=== PATIENT | male | born 1960 | race Hispanic/Latino ===

== ENCOUNTER 2025-07-16 16:22 | Inpatient (IN) | payer MEDICARE, SELFPAY ==
[2025-07-16 17:10] LABS: #Basophils 0.08 10x3/uL (0.0-0.2); #Eosinophils 0.27 10x3/uL (0.0-0.7); #Monocytes 0.75 10x3/uL (0.11-0.59); #Neutrophils 6.21 10x3/uL (1.40-6.50); %Basophils 1.0 % (0.0-1.0); %Eosinophils 3.3 % (0.0-10.0); %Lymphocytes 11.0 % (21.0-51.0); %Monocytes 9.1 % (0.0-10.0); %Neutrophils 75.2 % (42.0-75.0); Hematocrit 29.3 % (42.0-52.0); Hemoglobin 9.4 g/dL (14.0-18.0); Mean Corpuscular Hemoglobin 31.1 pg (27.0-31.0); Mean Corpuscular Volume 97.0 fL (78.0-98.0); Platelet Count 186 10x3/uL (130-400); Red Blood Cell (RBC) Count 3.02 mill/uL (4.70-6.10); White Blood Cell (WBC) Count 8.25 10x3/uL (4.8-10.8)
[2025-07-16 17:24] LABS: INR-International Normal Ratio 1.3; Prothrombin Time 16.1 sec (12.0-14.7)
[2025-07-16 17:25] LABS: PTT 36.6 sec (22.9-36.1)
[2025-07-16 17:44] LABS: ALT (SGPT) 19 U/L (Less than 45); AST (SGOT) 26 U/L (11-34); Albumin 3.2 g/dL (3.1-4.5); Alkaline Phosphatase 176 U/L (40-110); Anion Gap 22 mmol/L (10-20); BUN (Urea Nitrogen) 68 mg/dL (8.4-25.7); Bilirubin, Total 0.6 mg/dL (0.3-1.2); CK (CPK) 64 U/L (30-200); Calc. Creatinine Clearance 0 mL/min (70-130); Calcium 8.3 mg/dL (7.8-10.44); Carbon Dioxide 21 mmol/L (23-31); Chloride 103 mmol/L (98-107); Globulin 3.6 g/dL (2.4-3.5); Glucose 149 mg/dL (80-115); Lipase 34 U/L (8-78); Magnesium 2.3 mg/dL (1.6-2.6); Potassium 6.6 mmol/L (3.5-5.1); Sodium 139 mmol/L (136-145)
[2025-07-16] MEDS ORDERED: Furosemide 40 MG (4 mL) VIAL ONE (17:51)
[2025-07-16] MEDS ORDERED: CALCIUM GLUC 1 GM/NS 50 ML IV Bag ONE (17:52)
[2025-07-16] MEDS ORDERED: Albuterol 2.5 MG (0.5 mL) NEB ONE (18:40)
[2025-07-16] MEDS ORDERED: Dextrose 50% Abboject 50 ML SYRINGE ONE ×2 (19:32→21:07)
[2025-07-16] MEDS ORDERED: Glucagon 1 MG/ML KIT IM PRN (21:28)
[2025-07-16] MEDS ORDERED: Dextrose 50% Abboject 50 ML SYRINGE SLOW IVP PRN (21:28)
[2025-07-16 23:53] LABS: HBSAB Concentration 95.62 mIU/mL; Hep B Core Total Ab NONREACTIVE (NonReactive); Hep B Core Total Index 0.09 S/CO (0-0.79); Hep B Surf Ag NONREACTIVE S/CO (NonReactive); Hep C IgG Ab NONREACTIVE S/CO (NonReactive); Hep C Index 0.10 S/CO (0-0.79)
[2025-07-17] MEDS: Acetaminophen 325 MG TAB PO SCH (01:34)
[2025-07-17] MEDS: EPOETIN ALFA-EPBX (ESRD) 10,000 UNITS/ML VIAL IVP SCH (01:37)
[2025-07-17 01:44] VITALS: BMI 23.7
[2025-07-17 05:02] LABS: #Basophils 0.05 10x3/uL (0.0-0.2); #Eosinophils 0.20 10x3/uL (0.0-0.7); #Monocytes 0.80 10x3/uL (0.11-0.59); #Neutrophils 5.63 10x3/uL (1.40-6.50); %Basophils 0.7 % (0.0-1.0); %Eosinophils 2.7 % (0.0-10.0); %Lymphocytes 10.5 % (21.0-51.0); %Monocytes 10.7 % (0.0-10.0); %Neutrophils 75.1 % (42.0-75.0); Hematocrit 28.8 % (42.0-52.0); Hemoglobin 9.1 g/dL (14.0-18.0); Mean Corpuscular Hemoglobin 30.4 pg (27.0-31.0); Mean Corpuscular Volume 96.3 fL (78.0-98.0); Platelet Count 164 10x3/uL (130-400); Red Blood Cell (RBC) Count 2.99 mill/uL (4.70-6.10); White Blood Cell (WBC) Count 7.49 10x3/uL (4.8-10.8)
[2025-07-17 05:33] LABS: ALT (SGPT) 19 U/L (Less than 45); AST (SGOT) 26 U/L (11-34); Albumin 3.4 g/dL (3.1-4.5); Alkaline Phosphatase 163 U/L (40-110); Anion Gap 17 mmol/L (10-20); BUN (Urea Nitrogen) 37 mg/dL (8.4-25.7); Bilirubin, Total 0.6 mg/dL (0.3-1.2); Calc. Creatinine Clearance 19 mL/min (70-130); Calcium 8.6 mg/dL (7.8-10.44); Carbon Dioxide 28 mmol/L (23-31); Chloride 99 mmol/L (98-107); Globulin 3.6 g/dL (2.4-3.5); Glucose 123 mg/dL (80-115); Potassium 4.0 mmol/L (3.5-5.1); Sodium 140 mmol/L (136-145)
[2025-07-17] MEDS: hydrALAZINE 20 MG/ML VIAL SLOW IVP SCH (06:36)
[2025-07-17] MEDS: Ondansetron PF 4 MG/2 ML Vial IVP PRN (07:56)
[2025-07-17] MEDS: Heparin 5,000 UNITS/ML VIAL SC SCH (07:56)
[2025-07-17] MEDS: FLU (Fluarix Triv) 25-26 (6MOS UP)/PF 45 MCG/0.5 ML Syringe IM ONE (08:10)
[2025-07-17] MEDS: PNEUMOC 20-VAL CONJ-DIP CRM/PF 0.5 ML SYRINGE IM ONE (08:10)
[2025-07-17] MEDS ORDERED: NIFEdipine XL 60 MG ER.TAB PO SCH (08:30)
[2025-07-17] MEDS: NIFEdipine XL 90 MG ER.TAB PO SCH (10:08)
[2025-07-17 13:44] VITALS: BMI 23.6
[2025-07-17] MEDS: Melatonin 3 MG TAB PO SCH (20:55)
[2025-07-18 05:12] LABS: #Basophils 0.09 10x3/uL (0.0-0.2); #Eosinophils 0.29 10x3/uL (0.0-0.7); #Monocytes 0.90 10x3/uL (0.11-0.59); #Neutrophils 4.85 10x3/uL (1.40-6.50); %Basophils 1.3 % (0.0-1.0); %Eosinophils 4.0 % (0.0-10.0); %Lymphocytes 14.2 % (21.0-51.0); %Monocytes 12.5 % (0.0-10.0); %Neutrophils 67.4 % (42.0-75.0); Hematocrit 31.3 % (42.0-52.0); Hemoglobin 9.8 g/dL (14.0-18.0); Mean Corpuscular Hemoglobin 31.0 pg (27.0-31.0); Mean Corpuscular Volume 99.1 fL (78.0-98.0); Platelet Count 158 10x3/uL (130-400); Red Blood Cell (RBC) Count 3.16 mill/uL (4.70-6.10); White Blood Cell (WBC) Count 7.19 10x3/uL (4.8-10.8)
[2025-07-18 05:32] LABS: ALT (SGPT) 19 U/L (Less than 45); AST (SGOT) 29 U/L (11-34); Albumin 3.4 g/dL (3.1-4.5); Alkaline Phosphatase 179 U/L (40-110); Anion Gap 22 mmol/L (10-20); BUN (Urea Nitrogen) 49 mg/dL (8.4-25.7); Bilirubin, Total 0.6 mg/dL (0.3-1.2); Calc. Creatinine Clearance 13 mL/min (70-130); Calcium 8.6 mg/dL (7.8-10.44); Carbon Dioxide 24 mmol/L (23-31); Chloride 102 mmol/L (98-107); Globulin 3.7 g/dL (2.4-3.5); Glucose 79 mg/dL (80-115); Potassium 5.4 mmol/L (3.5-5.1); Sodium 143 mmol/L (136-145)
[2025-07-18] MEDS: NIFEdipine XL 90 MG ER.TAB PO SCH (08:29)
[2025-07-18] MEDS ORDERED: Calcium Carbonate 500 MG ChewTAB PO PRN (08:56)
[2025-07-18] MEDS ORDERED: Simethicone Chewable 80 MG TAB PO PRN (08:56)
[2025-07-18] MEDS: EPOETIN ALFA-EPBX (ESRD) 10,000 UNITS/ML VIAL IVP SCH (12:52)
[2025-07-18 12:53] VITALS: BP 170/82
[2025-07-18] MEDS: Heparin 10,000 UNITS/ 10 ML VIAL CATH SCH (12:57)
[2025-07-18 16:24] VITALS: TEMP 97.6
== END 2025-07-18 16:25 | disposition home or self-care (01) | DRG 640 ==
LOC: ERS 16:22 → ERHOLD 21:28 → IMCU/EMU 23:39
PROVIDERS: ADMIT Emergency Medicine; ATTEND Emergency Medicine
DX: E87.70 Fluid overload, unspecified (principal); J96.01 Acute respiratory failure with hypoxia; N18.6 End stage renal disease; I12.0 Hypertensive chronic kidney disease with stage 5 chronic kidney disease or end stage renal disease; E87.5 Hyperkalemia; E11.649 Type 2 diabetes mellitus with hypoglycemia without coma; E03.8 Other specified hypothyroidism; D63.1 Anemia in chronic kidney disease; E11.22 Type 2 diabetes mellitus with diabetic chronic kidney disease; Z99.2 Dependence on renal dialysis; Z95.1 Presence of aortocoronary bypass graft
CPT/HCPCS: 36415; 36416; 71045; 80053; 82550; 83605; 83690; 83735; 83880; 84436; 84443; 84484; 85025; 85610; 85730; 86704; 86706; 86803; 87340; 90935; 93005; 96361; 96365; 96375; 96376; G0257; J0360; J0613; J1644; J1815; J1940; J2405; J7611; J7999; Q5105